=== PATIENT | male | born 1950 | race Caucasian/White ===

== ENCOUNTER 2017-11-28 11:31 | Outpatient (CLI) | payer OTHER | END 2017-11-28 11:33 | disposition home or self-care (01) | LOC: EDSEX 11:31 → SONOGRAMA 11:31 | DX: E04.1 Nontoxic single thyroid nodule (principal) ==

== ENCOUNTER 2019-12-17 07:23 | Outpatient (CLI) | payer OTHER | END 2019-12-17 07:28 | disposition home or self-care (01) | LOC: SONOGRAMA 07:23 | DX: E04.1 Nontoxic single thyroid nodule (principal) ==